=== PATIENT | male | born 1945 | race Two or more races ===

== ENCOUNTER 2020-05-16 14:24 | Emergency (ER) | payer OTHER ==
[~2020-05-16] VITALS: Ht 185.4 cm; Wt 102.1 kg
[2020-05-16 15:27] LABS: Albumin 3.2 g/dL (3.4-5.0); Anion Gap 7 (5-15); Blood Urea Nitrogen 18 mg/dL (7-18); Calcium 8.1 mg/dL (8.5-10.1); Carbon Dioxide 22 mmol/L (21-32); Chloride 100 mmol/L (98-107); Glucose 178 mg/dL (74-106); Potassium 3.7 mmol/L (3.5-5.1); Sodium 129 mmol/L (136-145)
[2020-05-16 15:33] LABS: Alanine Aminotransferase 55 U/L (16-61); Alkaline Phosphatase 70 U/L (45-117); Aspartate Aminotransferase 47 U/L (15-37); BUN/Creatinine Ratio 18.2; Bilirubin, Total 0.6 mg/dL (0.2-1.0); GFR African American 95 mL/min; GFR Non-African American 79 mL/min; Total Protein 7.4 g/dL (6.4-8.2)
[2020-05-16 15:58] LABS: Basophils # (auto) 0 10 ^3/uL (0-0.2); Eosinophils # (auto) 0 10 ^3/uL (0-0.8); Eosinophils % (auto) 0.2 % (0.0-7.0); Hematocrit 43.6 % (41.0-53.0); Hemoglobin 15.3 g/dL (13.5-17.5); Mean Corpuscular Hemoglobin 30.2 pg (28.0-32.0); Mean Corpuscular Hgb Conc. 35.2 g/dL (32.0-36.0); Mean Corpuscular Volume 85.9 fL (80.0-100.0); Monocytes # (auto) 0.6 10 ^3/uL (0-1.3); Monocytes % (auto) 11.2 % (0.0-12.0); Neutrophils # (auto) 3.3 10 ^3/uL (1.6-8.6); Neutrophils % (auto) 66.6 % (37.0-80.0); Nucleated Red Blood Cells % 0.2 %; Platelet Count (auto) 177 10^3/uL (140-450); Red Blood Cells 5.08 10^6/uL (4.5-5.90); Red Cell Distribution Width 12.5 % (11.8-14.3)
[2020-05-16] MEDS ORDERED: IOHEXOL 300 MG/ML 100ML BOTTLE IJ ONE (17:01)
[2020-05-16 17:50] VITALS: BP 139/85
== END 2020-05-16 18:18 | disposition home or self-care (01) ==
LOC: ER 14:24
DX: U07.1 COVID-19 (principal); R06.02 Shortness of breath
CPT/HCPCS: 36415; 71045; 74177; 80053; 84484; 85025; 87426; 99285; Q9967

== ENCOUNTER 2020-05-20 12:16 | Outpatient (CLI) | payer OTHER ==
[2020-05-20] VITALS (7 sets, daily range): BP systolic 134–156; BP diastolic 73–86
[~2020-05-20] VITALS: Ht 30.5 cm; Wt 106.6 kg
[2020-05-20] MEDS ORDERED: BAMLANIVIMAB 700MG/200ML 200 ML IV ONE (12:30)
== END 2020-05-20 15:10 | disposition home or self-care (01) ==
LOC: ER 12:16
PROVIDERS: ATTEND Internal Medicine
DX: Z23 Encounter for immunization (principal); U07.1 COVID-19
CPT/HCPCS: M0239; Q0239

== ENCOUNTER 2020-07-28 09:38 | Inpatient (IN) | payer OTHER ==
[~2020-07-28] VITALS: Ht 177.8 cm; Wt 110.0 kg
[2020-07-28 10:25] LABS: Basophils # (auto) 0 10 ^3/uL (0-0.2); Basophils % (auto) 0.7 % (0.0-2.0); Eosinophils # (auto) 0.1 10 ^3/uL (0-0.8); Eosinophils % (auto) 1.7 % (0.0-7.0); Hematocrit 43.1 % (41.0-53.0); Hemoglobin 15.2 g/dL (13.5-17.5); Lymphocytes # (auto) 1.9 10 ^3/uL (0.4-5.4); Lymphocytes % (auto) 24.9 % (10.0-50.0); Mean Corpuscular Hemoglobin 30.6 pg (28.0-32.0); Mean Corpuscular Hgb Conc. 35.2 g/dL (32.0-36.0); Mean Corpuscular Volume 87.2 fL (80.0-100.0); Monocytes # (auto) 0.6 10 ^3/uL (0-1.3); Monocytes % (auto) 7.4 % (0.0-12.0); Neutrophils # (auto) 4.9 10 ^3/uL (1.6-8.6); Neutrophils % (auto) 65.3 % (37.0-80.0); Nucleated Red Blood Cells % 0.1 %; Platelet Count (auto) 197 10^3/uL (140-450); Red Blood Cells 4.95 10^6/uL (4.5-5.90); Red Cell Distribution Width 13.5 % (11.8-14.3); White Blood Cell 7.5 10^3/uL (4.4-10.8)
[2020-07-28 11:05] LABS: Chloride 108 mmol/L (98-107); Potassium 3.5 mmol/L (3.5-5.1); Sodium 138 mmol/L (136-145)
[2020-07-28 11:14] LABS: Alanine Aminotransferase 47 U/L (16-61); Albumin 3.5 g/dL (3.4-5.0); Alkaline Phosphatase 59 U/L (45-117); Anion Gap 9 (5-15); Aspartate Aminotransferase 37 U/L (15-37); BUN/Creatinine Ratio 18.1; Bilirubin, Total 0.8 mg/dL (0.2-1.0); Blood Urea Nitrogen 19 mg/dL (7-18); Calcium 8.4 mg/dL (8.5-10.1); Carbon Dioxide 21 mmol/L (21-32); GFR African American 89 mL/min; GFR Non-African American 73 mL/min; Glucose 177 mg/dL (74-106); Magnesium 2.1 mg/dL (1.6-2.6); Total Protein 6.8 g/dL (6.4-8.2)
[2020-07-28] MEDS ORDERED: MORPHINE SULF INJ 2 MG/ML SYRINGE 1ML IV PRN (12:30)
[2020-07-28] MEDS ORDERED: DEXTROSE (50%) 50ML SYRG IV PRN (12:30)
[2020-07-28] MEDS ORDERED: NITROGLYCERIN 0.4 MG SL TAB SL PRN (12:30)
[2020-07-28] MEDS ORDERED: MECLIZINE HCL 25 MG TAB PO PRN (16:00)
[2020-07-28] MEDS: InsuLIN REG 1unit/0.01ml Soln (100units/ml) SC SCH ×2 (16:00→21:15)
[2020-07-28] MEDS: ACCU-CHEK COMFORT CURVE STRIP VI SCH ×2 (16:00→21:00)
[2020-07-28] MEDS ORDERED: OMEP-260 PO (16:26)
[2020-07-28] MEDS ORDERED: METF-370 PO (16:26)
[2020-07-28] MEDS ORDERED: GAB100C PO (16:26)
[2020-07-28 16:49] VITALS: BP_SYST 138; BP_SYST 150; BP_SYST 155; BP_DIAS 76; BP_DIAS 79; BP_DIAS 89
[2020-07-28] MEDS ORDERED: TERB250T66 PO (18:34)
[2020-07-28 22:00] VITALS: BP 138/75
[2020-07-29] MEDS: ACCU-CHEK COMFORT CURVE STRIP VI SCH ×5 (00:18→16:17)
[2020-07-29] MEDS: InsuLIN REG 1unit/0.01ml Soln (100units/ml) SC SCH ×5 (04:00→16:00)
[2020-07-29 05:00] VITALS: BP 120/70
[2020-07-29 09:18] VITALS: BP 135/75
[2020-07-29] MEDS ORDERED: PANTOPRAZOLE 40 MG TAB PO SCH (10:00)
[2020-07-29] MEDS ORDERED: ZINC SULFATE 220mg CAP or TAB PO SCH (10:00)
[2020-07-29] MEDS ORDERED: ASCORBIC ACID 1,000 MG TAB PO SCH (10:00)
[2020-07-29] MEDS ORDERED: CHOLECALCIFEROL (VITD3) 2,000 UNIT CAP/TAB PO SCH (10:00)
[2020-07-29] MEDS ORDERED: ENOXAPARIN SOD 40 MG/0.4 ML SYRINGE SC SCH (10:00)
[2020-07-29 13:00] VITALS: BP 143/83
[2020-07-29] MEDS ORDERED: CHOL1CAP47 PO (14:59)
[2020-07-29] MEDS ORDERED: ASCO10003 PO (14:59)
[2020-07-29] MEDS ORDERED: ZINC220T6 PO (14:59)
== END 2020-07-29 17:00 | disposition home health service (06) | DRG 149 ==
LOC: ER 09:38 → TELE-CENTR 15:07 → OBSVTOIN 15:07 → TELE-EAST 19:20
PROVIDERS: ADMIT Internal Medicine; ATTEND Internal Medicine
DX: H81.10 Benign paroxysmal vertigo, unspecified ear (principal); U07.1 COVID-19; J12.82 Pneumonia due to coronavirus disease 2019; J98.11 Atelectasis; E11.65 Type 2 diabetes mellitus with hyperglycemia; R00.1 Bradycardia, unspecified; E66.01 Morbid (severe) obesity due to excess calories; E78.5 Hyperlipidemia, unspecified; K21.9 Gastro-esophageal reflux disease without esophagitis; R29.700 NIHSS score 0; Z79.4 Long term (current) use of insulin; Z68.30 Body mass index [BMI] 30.0-30.9, adult; Z79.899 Other long term (current) drug therapy; Z82.49 Family history of ischemic heart disease and other diseases of the circulatory system; Z83.3 Family history of diabetes mellitus; Z86.73 Personal history of transient ischemic attack (TIA), and cerebral infarction without residual deficits
CPT/HCPCS: 36415; 70450; 70551; 71045; 80053; 80329; 82962; 83735; 84484; 85025; 87040; 87426; 93005; 93306; G0378; J1815

== ENCOUNTER 2020-08-14 10:22 | Emergency (ER) | payer OTHER ==
[~2020-08-14] VITALS: Ht 180.3 cm; Wt 106.6 kg
[~2020-08-14 10:22] MED LIST: ASCO10003 PO; CHOL1CAP47 PO; GAB100C PO; METF-370 PO; OMEP-260 PO; TERB250T66 PO; ZINC220T6 PO
[2020-08-14] MEDS ORDERED: CIPR-173 PO (10:37)
[2020-08-14] MEDS ORDERED: MECLIZINE HCL 25 MG TAB PO ONE (10:45)
[2020-08-14] MEDS ORDERED: SODIUM CHLORIDE 0.9% 1,000 ML IV ONE (11:15)
[2020-08-14] MEDS ORDERED: LORazepam 2MG/ML-1ML VIAL IV ONE (11:15)
[2020-08-14] MEDS ORDERED: SODIUM CHLORIDE 0.9% 500 ML IVB ONE (11:15)
[2020-08-14] MEDS ORDERED: FUROSEMIDE 20 MG/2 ML VIAL IV ONE (11:15)
[2020-08-14 12:14] LABS: Basophils # (auto) 0 10 ^3/uL (0-0.2); Basophils % (auto) 0.2 % (0.0-2.0); Eosinophils # (auto) 0.1 10 ^3/uL (0-0.8); Eosinophils % (auto) 0.6 % (0.0-7.0); Hemoglobin 15.3 g/dL (13.5-17.5); Lymphocytes # (auto) 1.3 10 ^3/uL (0.4-5.4); Lymphocytes % (auto) 13.7 % (10.0-50.0); Monocytes # (auto) 0.7 10 ^3/uL (0-1.3); Monocytes % (auto) 6.8 % (0.0-12.0); Neutrophils # (auto) 7.5 10 ^3/uL (1.6-8.6); Neutrophils % (auto) 78.7 % (37.0-80.0); Platelet Count (auto) 222 10^3/uL (140-450); Red Blood Cells 5.11 10^6/uL (4.5-5.90); Red Cell Distribution Width 13.5 % (11.8-14.3); White Blood Cell 9.5 10^3/uL (4.4-10.8)
[2020-08-14 12:20] LABS: Potassium 4.1 mmol/L (3.5-5.1)
[2020-08-14 12:29] VITALS: BP 122/68
[2020-08-14 12:29] LABS: Albumin 3.8 g/dL (3.4-5.0); BUN/Creatinine Ratio 19.2; Bilirubin, Total 0.5 mg/dL (0.2-1.0); Calcium 9.1 mg/dL (8.5-10.1); Magnesium 2.3 mg/dL (1.6-2.6); Total Protein 7.2 g/dL (6.4-8.2)
[2020-08-14 12:55] LABS: Urine WBC None Seen /hpf (0 - 3)
[2020-08-14 13:10] LABS: Urine Bacteria NONE SEEN /hpf (None Seen); Urine Blood Negative /uL (Negative); Urine Specific Gravity 1.008 (1.001-1.035)
== END 2020-08-14 14:12 | disposition home or self-care (01) ==
LOC: ER 10:22
DX: R42 Dizziness and giddiness (principal); E11.65 Type 2 diabetes mellitus with hyperglycemia; I10 Essential (primary) hypertension
CPT/HCPCS: 36415; 80053; 81001; 83735; 84443; 85025; 93005; 96361; 96374; 96375; 99284; J1940; J2060; J7030; J7040; J8597

== ENCOUNTER 2020-09-15 06:05 | Day surgery (SDC) | payer OTHER ==
[2020-09-12 13:51] LABS: Urine WBC None Seen /hpf (0 - 3)
[2020-09-12 13:56] LABS: Basophils # (auto) 0 10 ^3/uL (0-0.2); Basophils % (auto) 0.5 % (0.0-2.0); Eosinophils # (auto) 0.2 10 ^3/uL (0-0.8); Eosinophils % (auto) 3.1 % (0.0-7.0); Hematocrit 43.2 % (41.0-53.0); Hemoglobin 14.7 g/dL (13.5-17.5); Lymphocytes # (auto) 2.9 10 ^3/uL (0.4-5.4); Lymphocytes % (auto) 35.4 % (10.0-50.0); Mean Corpuscular Hemoglobin 29.6 pg (28.0-32.0); Monocytes # (auto) 0.8 10 ^3/uL (0-1.3); Monocytes % (auto) 9.7 % (0.0-12.0); Neutrophils # (auto) 4.1 10 ^3/uL (1.6-8.6); Neutrophils % (auto) 51.3 % (37.0-80.0); Nucleated Red Blood Cells % 0.1 %; Platelet Count (auto) 272 10^3/uL (140-450); Red Blood Cells 4.97 10^6/uL (4.5-5.90); White Blood Cell 8.1 10^3/uL (4.4-10.8)
[2020-09-12 14:10] LABS: INR 1.03 (0.9-1.15); Partial Thromboplastin Time 25.6 sec (23.0-31.2)
[2020-09-12 14:14] LABS: Urine Bacteria NONE SEEN /hpf (None Seen); Urine Blood Negative /uL (Negative); Urine Specific Gravity 1.022 (1.001-1.035)
[2020-09-12 14:27] LABS: Albumin 3.7 g/dL (3.4-5.0); Calcium 8.9 mg/dL (8.5-10.1); Potassium 4.2 mmol/L (3.5-5.1)
[2020-09-12 14:32] LABS: BUN/Creatinine Ratio 16.1; Bilirubin, Total 0.4 mg/dL (0.2-1.0); Total Protein 7.4 g/dL (6.4-8.2)
[~2020-09-15] VITALS: Ht 180.3 cm; Wt 108.0 kg
[~2020-09-15 06:05] MED LIST changes: -ASCO10003 PO; -GAB100C PO; +GABA100C9 PO; -ZINC220T6 PO
[2020-09-15] MEDS ORDERED: CIPROFLOXACIN 400MG/200ML 200 ML IV ONE (06:39)
[2020-09-15] MEDS ORDERED: MIDAZOLAM HCL 1MG/1ML-2 ML VIAL ONE (07:22)
[2020-09-15] MEDS ORDERED: fentaNYL CITRATE 100 MCG/2 ML VL ONE (07:22)
[2020-09-15] MEDS ORDERED: KETAMINE HCL 10 ML ONE (07:49)
[2020-09-15] MEDS ORDERED: LIDOCAINE 2% JELLY 11ml (GLYDO) ONE (08:00)
[2020-09-15] MEDS ORDERED: ONDANSETRON HCL 4 MG/2 ML VIAL IV PRN (08:45)
[2020-09-15] MEDS ORDERED: PROPOFOL 10 MG/ML 20 ML IV ONE (09:04)
[2020-09-15 09:20] VITALS: BP 119/73
== END 2020-09-15 09:45 | disposition home or self-care (01) ==
LOC: SUR 06:05
PROVIDERS: ATTEND Urology
DX: R97.20 Elevated prostate specific antigen [PSA] (principal); C61 Malignant neoplasm of prostate; K62.4 Stenosis of anus and rectum; I10 Essential (primary) hypertension; E66.9 Obesity, unspecified; E11.9 Type 2 diabetes mellitus without complications; J98.8 Other specified respiratory disorders; Z20.822 Contact with and (suspected) exposure to COVID-19; Z98.890 Other specified postprocedural states; Z79.899 Other long term (current) drug therapy; Z68.33 Body mass index [BMI] 33.0-33.9, adult; D68.8 Other specified coagulation defects
CPT/HCPCS: 36415; 55700; 80053; 81001; 82962; 85025; 85610; 85730; 88305; 88342; J0744; J2250; J2704; J3010; U0003

== ENCOUNTER 2020-09-19 10:26 | Inpatient (IN) | payer OTHER ==
[~2020-09-19] VITALS: Ht 180.3 cm; Wt 108.0 kg
[2020-09-19] MEDS ORDERED: SODIUM CHLORIDE 0.9% 1,000 ML IV ONE ×2 (10:45)
[2020-09-19] MEDS ORDERED: cefTRIAXone 1GM/50ML D5W 50 ML IV ONE (10:45)
[2020-09-19 10:55] LABS: Basophils # (auto) 0 10 ^3/uL (0-0.2); Basophils % (auto) 0.3 % (0.0-2.0); Eosinophils # (auto) 0.1 10 ^3/uL (0-0.8); Eosinophils % (auto) 0.5 % (0.0-7.0); Hematocrit 44.4 % (41.0-53.0); Hemoglobin 15.8 g/dL (13.5-17.5); Lymphocytes # (auto) 1.2 10 ^3/uL (0.4-5.4); Lymphocytes % (auto) 10.8 % (10.0-50.0); Mean Corpuscular Hemoglobin 30.6 pg (28.0-32.0); Mean Corpuscular Hgb Conc. 35.6 g/dL (32.0-36.0); Monocytes % (auto) 8.8 % (0.0-12.0); Neutrophils # (auto) 8.8 10 ^3/uL (1.6-8.6); Neutrophils % (auto) 79.6 % (37.0-80.0); Nucleated Red Blood Cells % 0.3 %; Platelet Count (auto) 210 10^3/uL (140-450); Red Blood Cells 5.16 10^6/uL (4.5-5.90); Red Cell Distribution Width 12.8 % (11.8-14.3); White Blood Cell 11.1 10^3/uL (4.4-10.8)
[2020-09-19] MEDS ORDERED: ACETAMINOPHEN 500 MG TAB PO ONE (11:00)
[2020-09-19 11:14] LABS: INR 1.08 (0.9-1.15); Partial Thromboplastin Time 29.2 sec (23.0-31.2)
[2020-09-19 11:19] LABS: Albumin 3.5 g/dL (3.4-5.0); Anion Gap 9 (5-15); Blood Urea Nitrogen 12 mg/dL (7-18); Carbon Dioxide 22 mmol/L (21-32); Chloride 102 mmol/L (98-107); Glucose 189 mg/dL (74-106); Sodium 133 mmol/L (136-145)
[2020-09-19 11:23] LABS: Lactic Acid w/Reflex 2.2 mmol/L (0.4-2.0)
[2020-09-19 11:24] LABS: Alanine Aminotransferase 24 U/L (16-61); Alkaline Phosphatase 74 U/L (45-117); Aspartate Aminotransferase 15 U/L (15-37); BUN/Creatinine Ratio 10.9; Bilirubin, Total 0.7 mg/dL (0.2-1.0); GFR African American 84 mL/min; GFR Non-African American 70 mL/min; Total Protein 7.8 g/dL (6.4-8.2)
[2020-09-19 12:29] LABS: Urine Bacteria NONE SEEN /hpf (None Seen); Urine Blood 3+ /uL (Negative); Urine Mucus FEW (None Seen); Urine Specific Gravity 1.013 (1.001-1.035); Urine WBC 240 /hpf (0 - 3)
[2020-09-19] MEDS ORDERED: PROMETHAZINE HCL 25 MG/ML 1ML IV PRN (14:15)
[2020-09-19] MEDS ORDERED: ACETAMINOPHEN 325 MG TAB PO PRN ×2 (14:15→21:00)
[2020-09-19] MEDS ORDERED: DEXTROSE (50%) 50ML SYRG IV PRN (14:15)
[2020-09-19] MEDS ORDERED: levoFLOXacin 500MG 100 ML IV ONE (14:15)
[2020-09-19] MEDS ORDERED: HYDROcodone-ACET 5/325MG TAB PO PRN ×2 (14:15→21:00)
[2020-09-19] MEDS ORDERED: NITROGLYCERIN 0.4 MG SL TAB SL PRN (14:15)
[2020-09-19] MEDS ORDERED: MORPHINE SULF INJ 2 MG/ML SYRINGE 1ML IV PRN ×2 (14:15)
[2020-09-19] MEDS ORDERED: LORazepam 2MG/ML-1ML VIAL IV ONE (15:15)
[2020-09-19] MEDS: InsuLIN REG 1unit/0.01ml Soln (100units/ml) SC SCH ×2 (17:00→21:41)
[2020-09-19] MEDS: ACCU-CHEK COMFORT CURVE STRIP VI SCH ×2 (17:18→21:36)
[2020-09-19 20:50] VITALS: BP 116/68
[2020-09-19 22:00] VITALS: BP 116/68
[2020-09-19] MEDS ORDERED: GABAPENTIN 300 MG CAP PO SCH (22:00)
[2020-09-20] MEDS ORDERED: CIP500T PO ×2 (01:00→01:02)
[2020-09-20] MEDS ORDERED: ACET325T10 PO (01:02)
[2020-09-20 05:00] VITALS: BP 110/60
[2020-09-20] MEDS: InsuLIN REG 1unit/0.01ml Soln (100units/ml) SC SCH (06:31)
[2020-09-20] MEDS: ACCU-CHEK COMFORT CURVE STRIP VI SCH (06:31)
[2020-09-20 08:30] VITALS: BP 105/63
[2020-09-20 08:33] VITALS: BP 105/63
[2020-09-20] MEDS ORDERED: CIPROFLOXACIN HCL 500 MG TAB PO SCH (10:00)
[2020-09-20] MEDS ORDERED: PANTOPRAZOLE 40 MG TAB PO SCH (10:00)
[2020-09-20] MEDS ORDERED: levoFLOXacin 500MG 100 ML IV SCH (10:00)
== END 2020-09-20 09:00 | disposition home health service (06) | DRG 690 ==
LOC: ER 10:26 → TELE 14:02 → TELE-EAST 20:08
PROVIDERS: ADMIT Internal Medicine; ATTEND Internal Medicine
DX: N39.0 Urinary tract infection, site not specified (principal); N40.0 Benign prostatic hyperplasia without lower urinary tract symptoms; Z20.822 Contact with and (suspected) exposure to COVID-19; E11.40 Type 2 diabetes mellitus with diabetic neuropathy, unspecified; K21.9 Gastro-esophageal reflux disease without esophagitis; Z79.4 Long term (current) use of insulin; Z83.3 Family history of diabetes mellitus; Z79.899 Other long term (current) drug therapy; D35.02 Benign neoplasm of left adrenal gland; D35.01 Benign neoplasm of right adrenal gland
CPT/HCPCS: 36415; 71045; 74176; 80053; 81001; 82962; 83605; 84154; 84484; 85025; 85610; 85730; 87040; 87081; 87086; 87426; 96365; 96366; 96367; 96375; G0378; J0696; J1815; J1956